=== PATIENT | male | born 1990 | race Caucasian/White ===

== ENCOUNTER 2019-04-22 12:27 | Emergency (ER) | payer BC ==
[2019-04-22] MEDS: ACETAMINOPHEN 325 MG TAB PO (13:00)
[2019-04-22] MEDS: SOD CHLORIDE 0.9% 1,000 ML IV (13:01)
[2019-04-22] MEDS: KETOROLAC 30 MG INJ IV (13:01)
[2019-04-22 13:20] LABS: ADD MAN DIFF? NO
[2019-04-22 13:24] LABS: BASOPHILS % 0.4 % (0.0-2.0); EOSINOPHILS # 0.1 10^3/ul (0.0-0.5); EOSINOPHILS % 0.7 % (0.0-7.0); HEMATOCRIT 43.8 % (42.0-52.0); HEMOGLOBIN 14.6 g/dl (14.0-18.0); LYMPHOCYTES # 0.8 10^3/ul (0.8-2.9); MEAN CORPUSCULAR HEMOGLOBIN 28.1 pg (29.0-33.0); MEAN CORPUSCULAR HGB CONC 33.3 g/dl (32.0-37.0); MEAN CORPUSCULAR VOLUME 84.2 fl (82.0-101.0); MEAN PLATELET VOLUME 9.3 fl (7.4-10.4); MONOCYTES % 11.5 % (0.0-11.0); NEUTROPHIL # 6.5 10^3/ul (1.6-7.5); NEUTROPHILS % 77.2 % (39.0-77.0); PLATELET COUNT 189 10^3/UL (140-415); RED CELL DISTRIBUTION WIDTH 11.7 % (11.5-14.5)
[2019-04-22 13:24] LABS: WHITE BLOOD COUNT 8.4 10^3/ul (4.8-10.8)
[2019-04-22 13:44] LABS: ANION GAP 13 (5-13); BLOOD UREA NITROGEN 13 mg/dl (7-20); CALCIUM 9.9 mg/dl (8.4-10.2); CARBON DIOXIDE 29 mmol/L (21-31); CHLORIDE 101 mmol/L (97-110); Estimated GFR > 60 mL/min (>60); GLUCOSE 145 mg/dl (70-220); SODIUM 143 mmol/L (135-144)
[2019-04-22] MEDS: CEFTRIAXONE 1 GM/50 ML (PMX) 50 ML IVPB (14:09)
[2019-04-22] MEDS: SODIUM CHLORIDE 0.9% 1L BAG IV* (14:09)
[2019-04-22 15:02] LABS: ADD UMIC NO; UR ASCORBIC ACID NEGATIVE (NEGATIVE); UR BILIRUBIN (Dip) NEGATIVE (NEGATIVE); UR BLOOD (Dip) NEGATIVE (NEGATIVE); UR CLARITY CLEAR (CLEAR); UR COLOR STRAW (YELLOW); UR GLUCOSE (Dip) NEGATIVE (NEGATIVE); UR KETONES (Dip) TRACE mg/dL (NEGATIVE); UR LEUKOCYTE ESTERASE (Dip) NEGATIVE Leu/ul (NEGATIVE); UR NITRITE (Dip) NEGATIVE (NEGATIVE); UR SPECIFIC GRAVITY (Dip) 1.006 (1.003-1.030); UR TOTAL PROTEIN (Dip) NEGATIVE (NEGATIVE); UR UROBILINOGEN (Dip) NEGATIVE (NEGATIVE)
[2019-04-22 15:43] LABS: LACTIC ACID 0.7 mmol/L (0.5-2.0)
== END 2019-04-22 15:57 | disposition home or self-care (01) ==
LOC: FTE 15:57
DX: J18.9 Pneumonia, unspecified organism (principal); J06.9 Acute upper respiratory infection, unspecified
CPT/HCPCS: 36415; 71045; 72100; 80048; 81003; 83605; 85025; 87040-91; 87400; 96361; 96365; 96366; 96375; 99284-25